=== PATIENT | male | born 1965 | race Caucasian/White ===

== ENCOUNTER 2025-04-21 11:14 | Outpatient (CLI) | payer BC | END 2025-04-21 11:15 | disposition home or self-care (01) | LOC: SCSRAD 11:14 | PROVIDERS: ATTEND Family Medicine | DX: Z01.818 Encounter for other preprocedural examination (principal); R03.0 Elevated blood-pressure reading, without diagnosis of hypertension; R94.31 Abnormal electrocardiogram [ECG] [EKG]; M87.051 Idiopathic aseptic necrosis of right femur | CPT/HCPCS: 71046 ==